=== PATIENT | female | born 1950 | race Caucasian/White ===

== ENCOUNTER 2019-02-03 07:32 | Observation (INO) | payer MEDICARE, OTHER ==
[2019-02-03] MEDS ORDERED: OXYCODONE/ACETAMINOPHEN (5/325) TAB PO (10:00)
[2019-02-03] MEDS ORDERED: PROCHLORPERAZINE 10 MG INJ IV (10:00)
[2019-02-03] MEDS ORDERED: hydrALAzine 20 MG INJ IV (10:00)
[2019-02-03] MEDS ORDERED: MEPERIDINE 25 MG INJ IV (10:00)
[2019-02-03] MEDS: SOD CHLORIDE 0.9% 1,000 ML IV (10:00)
[2019-02-03] MEDS ORDERED: SEVOFLURANE 15 MIN (10:00)
[2019-02-03] MEDS ORDERED: EPHEDrine SULFATE 50 MG/5 ML SYG IV (10:00)
[2019-02-03] MEDS ORDERED: DIPHENHYDRAMINE 50 MG INJ IV ×2 (10:00→11:00)
[2019-02-03] MEDS ORDERED: FENTAnyl 50 MCG/ML VIAL IV (10:00)
[2019-02-03] MEDS ORDERED: HYDROmorphONE 1 MG/5 ML IV SYRINGE IV ×2 (10:00)
[2019-02-03] MEDS ORDERED: LABETALOL HCL 20MG INJ IV (10:00)
[2019-02-03] MEDS ORDERED: PROPOFOL 20 ML (10:55)
[2019-02-03] MEDS ORDERED: MIDAZOLAM 1 MG/ML 2 ML INJ (10:55)
[2019-02-03] MEDS ORDERED: LIDOCAINE 2% (SDV) 5 ML INJ (10:55)
[2019-02-03] MEDS ORDERED: ONDANSETRON 4 MG INJ (10:55)
[2019-02-03] MEDS ORDERED: FAMOTIDINE 20 MG INJ (10:55)
[2019-02-03] MEDS ORDERED: FENTAnyl 50 MCG/ML VIAL (10:56)
[2019-02-03] MEDS ORDERED: ZOLPIDEM 5 MG TAB PO (11:00)
[2019-02-03] MEDS ORDERED: ACETAMINOPHEN 325 MG TAB PO (11:00)
[2019-02-03] MEDS ORDERED: CIPROFLOXACIN 400MG/D5W 200 ML (11:04)
[2019-02-03] MEDS ORDERED: HYDROmorphONE 2 MG/ML SYG (11:27)
[2019-02-03] MEDS: ONDANSETRON 4 MG INJ IV ×2 (12:53→18:24)
[2019-02-03] MEDS: D5W-0.45 NACL + KCL 20 MEQ 1,000 ML IV ×2 (14:58→20:48)
[2019-02-03] MEDS: MELOXICAM 15 MG TAB PO (16:30)
[2019-02-03] MEDS ORDERED: GLUCAGON 1 MG INJ IM (18:00)
[2019-02-03] MEDS ORDERED: GLUCOSE GEL 15 GRAM TUBE PO ×2 (18:00)
[2019-02-03] MEDS ORDERED: DEXTROSE 50% 50 ML SYRINGE IV ×2 (18:00)
[2019-02-03] MEDS ORDERED: GLUCOSE GEL 15 GRAM TUBE BUCCAL (18:00)
[2019-02-03] MEDS: LINAGLIPTIN 5 MG TABLET PO (18:05)
[2019-02-03] MEDS: AMLODIPINE 10 MG TAB PO (18:06)
[2019-02-03] MEDS: morphine 2 MG INJ IV ×2 (18:24→21:18)
[2019-02-03] MEDS: INSULIN ASPART [NOVOLOG] 3 ML PEN SC ×2 (18:50→20:56)
[2019-02-04] MEDS: D5W-0.45 NACL + KCL 20 MEQ 1,000 ML IV ×2 (01:19→13:51)
[2019-02-04] MEDS: ACCU-CHEK XX (01:22)
[2019-02-04 05:53] LABS: ADD MAN DIFF? NO
[2019-02-04 06:02] LABS: WHITE BLOOD COUNT 9.4 10^3/ul (4.8-10.8)
[2019-02-04 06:02] LABS: BASOPHILS % 0.2 % (0.0-2.0); EOSINOPHILS # 0.1 10^3/ul (0.0-0.5); HEMATOCRIT 33.8 % (37.0-47.0); HEMOGLOBIN 10.9 g/dl (12.0-16.0); LYMPHOCYTES # 2.1 10^3/ul (0.8-2.9); LYMPHOCYTES % 22.8 % (15.0-51.0); MEAN CORPUSCULAR HEMOGLOBIN 29.4 pg (29.0-33.0); MEAN CORPUSCULAR HGB CONC 32.2 g/dl (32.0-37.0); MEAN CORPUSCULAR VOLUME 91.1 fl (82.0-101.0); MEAN PLATELET VOLUME 11.2 fl (7.4-10.4); MONOCYTE # 0.6 10^3/ul (0.3-0.9); MONOCYTES % 6.2 % (0.0-11.0); NEUTROPHIL # 6.5 10^3/ul (1.6-7.5); NEUTROPHILS % 69.6 % (39.0-77.0); PLATELET COUNT 123 10^3/UL (140-415); RED BLOOD COUNT 3.71 10^6/ul (4.20-5.40); RED CELL DISTRIBUTION WIDTH 13.2 % (11.5-14.5)
[2019-02-04 06:15] LABS: ANION GAP 6 (5-13); BLOOD UREA NITROGEN 11 mg/dl (7-20); CARBON DIOXIDE 30 mmol/L (21-31); CHLORIDE 107 mmol/L (97-110); CREATININE 0.57 mg/dl (0.44-1.00); Estimated GFR > 60 mL/min (>60); GLUCOSE 154 mg/dl (70-220); POTASSIUM 3.7 mmol/L (3.5-5.1); SODIUM 143 mmol/L (135-144)
[2019-02-04] MEDS: PANTOPRAZOLE 40 MG INJ IV (06:32)
[2019-02-04] MEDS: LEVOTHYROXINE 100 MCG TAB PO (06:32)
[2019-02-04] MEDS: ENOXAPARIN 40 MG/0.4 ML SYG SC (06:34)
[2019-02-04] MEDS: INSULIN ASPART [NOVOLOG] 3 ML PEN SC ×4 (08:48→21:06)
[2019-02-04] MEDS: MELOXICAM 15 MG TAB PO (08:49)
[2019-02-04] MEDS: LINAGLIPTIN 5 MG TABLET PO (08:49)
[2019-02-04] MEDS: AMLODIPINE 10 MG TAB PO (08:50)
[2019-02-04] MEDS: HYDROCODONE/APAP (5/325) TAB PO (08:52)
[2019-02-04] MEDS: SOD CHLORIDE 0.9% 1,000 ML IV (09:32)
[2019-02-04] MEDS: HYDROCODONE/APAP (10/325) TAB PO (12:55)
[2019-02-05] MEDS: ACCU-CHEK XX (02:12)
[2019-02-05] MEDS: PANTOPRAZOLE 40 MG INJ IV (06:07)
[2019-02-05] MEDS: LEVOTHYROXINE 100 MCG TAB PO (06:07)
[2019-02-05] MEDS: ENOXAPARIN 40 MG/0.4 ML SYG SC (06:13)
[2019-02-05] MEDS: INSULIN ASPART [NOVOLOG] 3 ML PEN SC ×2 (08:41→11:40)
[2019-02-05] MEDS: MELOXICAM 15 MG TAB PO (08:42)
[2019-02-05] MEDS: AMLODIPINE 10 MG TAB PO (08:43)
[2019-02-05] MEDS: LINAGLIPTIN 5 MG TABLET PO (08:43)
[2019-02-05] MEDS: COLCHICINE 0.6 MG TAB PO (15:01)
[2019-02-05] MEDS: HYDROCODONE/APAP (5/325) TAB PO (15:12)
[2019-02-06] MEDS ORDERED: PANTOPRAZOLE (EC) 40 MG TAB PO (06:00)
== END 2019-02-05 15:30 | disposition home or self-care (01) ==
LOC: SDS 07:32 → REC 10:54 → MS1 13:45
PROVIDERS: Surgery
DX: C50.911 Malignant neoplasm of unspecified site of right female breast (principal); E11.9 Type 2 diabetes mellitus without complications; I10 Essential (primary) hypertension; E78.5 Hyperlipidemia, unspecified; G47.33 Obstructive sleep apnea (adult) (pediatric); E66.9 Obesity, unspecified; F32.9 Major depressive disorder, single episode, unspecified; D64.9 Anemia, unspecified
CPT/HCPCS: 19307; 80048; 82962; 85025; 88307; 97161; 97165